=== PATIENT | female | born 1950 | race Caucasian/White ===

== ENCOUNTER → 2017-03-23 | Outpatient (REF) | payer MEDICARE, OTHER | LOC: M LAB REF 12:42 | PROVIDERS: ATTEND Physician Assistant | DX: R30.0 Dysuria (principal) ==

== ENCOUNTER → 2017-04-12 | Outpatient (CLI) | payer MEDICARE, OTHER ==
--- NOTE | 2017-04-12 10:48 | REP ---
Left ankle series: Four views. History: Pain in the posterior ankle. Findings: Ankle mortise is intact. Four views of the ankle demonstrate Achilles calcaneal spurring. Bones, joints and soft tissues are otherwise unremarkable. Impression: Large Achilles calcaneal spur. Otherwise negative left ankle views. Signed by Xu Loving MD 04/12/2017 01:08 P
== END ==
LOC: M WUC 10:08
PROVIDERS: ATTEND Physician Assistant
DX: M77.30 Calcaneal spur, unspecified foot (principal)

== ENCOUNTER → 2017-07-09 | Outpatient (REF) | payer MEDICARE, OTHER | LOC: M LAB REF 17:48 | PROVIDERS: ATTEND Physician Assistant | DX: R30.0 Dysuria (principal) ==